=== PATIENT | female | born 1980 | race Caucasian/White ===

== ENCOUNTER → 2020-06-19 | Outpatient (CLI) | payer MEDICAID | LOC: LABNPT 06:50 | PROVIDERS: ATTEND Nurse Practitioner Family | DX: Z01.812 Encounter for preprocedural laboratory examination (principal); Z20.828 Contact with and (suspected) exposure to other viral communicable diseases | CPT/HCPCS: 87635 ==

== ENCOUNTER 2020-06-21 20:29 | Outpatient (CLI) | payer MEDICAID | END 2020-06-22 06:23 | disposition home or self-care (01) | LOC: SLEEP 20:29 | PROVIDERS: ATTEND Nurse Practitioner Family | DX: G47.33 Obstructive sleep apnea (adult) (pediatric) (principal); G47.10 Hypersomnia, unspecified; R09.02 Hypoxemia; J30.9 Allergic rhinitis, unspecified | CPT/HCPCS: 95810 ==

== ENCOUNTER → 2020-10-13 | Outpatient (CLI) | payer MEDICAID | LOC: LABNPT 06:37 | PROVIDERS: ATTEND Nurse Practitioner Family | DX: Z01.812 Encounter for preprocedural laboratory examination (principal); Z20.828 Contact with and (suspected) exposure to other viral communicable diseases ==

== ENCOUNTER 2020-10-17 20:15 | Outpatient (CLI) | payer MEDICAID | END 2020-10-18 05:45 | disposition home or self-care (01) | LOC: SLEEP 20:15 | PROVIDERS: ATTEND Nurse Practitioner Family | DX: Z01.812 Encounter for preprocedural laboratory examination (principal); G47.33 Obstructive sleep apnea (adult) (pediatric); J30.9 Allergic rhinitis, unspecified; J45.909 Unspecified asthma, uncomplicated; Z20.828 Contact with and (suspected) exposure to other viral communicable diseases | CPT/HCPCS: 95811 ==